=== PATIENT | male | born 1985 | race American Indian/Alaskan Native ===

== ENCOUNTER 2020-02-04 20:22 | Emergency (ER) | payer SELFPAY ==
[2020-02-04 20:57] VITALS: BP 147/89
--- NOTE | 2020-02-04 20:59 | Event Note ---
ED Screening Note Date of service: 02/04/20 Time: 20:58 ED Screening Note: c/o urinary frequency, blurred vision, and increased thirst no prior hx of DM POC glucose = 385 This initial assessment/diagnostic orders/clinical plan/treatment(s) is/are subject to change based on patients health status, clinical progression and re- assessment by fellow clinical providers in the ED. Further treatment and workup at subsequent clinical providers discretion. Patient/guardian urged not to elope from the ED as their condition may be serious if not clinically assessed and managed. Initial orders include: labs UA
[2020-02-04 21:33] LABS: Basophils # (Auto) 0.1 K/mm3 (0.0-0.1); Basophils % (Auto) 0.5 % (0.0-1.8); Eosinophils # (Auto) 0.1 K/mm3 (0.0-0.4); Eosinophils % (Auto) 0.6 % (0.0-4.3); Hematocrit 45.3 % (35.5-45.6); Hemoglobin 15.8 gm/dl (11.8-15.2); Lymphocytes # (Auto) 3.9 K/mm3 (1.2-5.4); Lymphocytes % (Auto) 27.8 % (13.4-35.0); Mean Corpuscular HGB Conc 35 % (32-34); Mean Corpuscular Volume 89 fl (84-94); Monocytes # (Auto) 0.8 K/mm3 (0.0-0.8); Monocytes % (Auto) 5.4 % (0.0-7.3); Platelet Count 260 K/mm3 (140-440); Red Blood Count 5.12 M/mm3 (3.65-5.03); Red Cell Distribution Width 13.8 % (13.2-15.2)
[2020-02-04 21:50] LABS: Alanine Aminotransferase 68 units/L (7-56); Albumin 4.4 g/dL (3.9-5); BUN/Creatinine Ratio 19; Blood Urea Nitrogen 19 mg/dL (9-20); Calcium 9.3 mg/dL (8.4-10.2); Hemolysis Index 155
[2020-02-05] MEDS ORDERED: SODIUM CHLORIDE 0.9% 1000 ML 1,000 ML IV ONE (01:48)
[2020-02-05] MEDS ORDERED: INSULIN REGULAR, HUMAN 100 UNIT/ML 3ML VIAL IV ONE (01:48)
--- NOTE | 2020-02-05 01:52 | Emergency Department Report ---
ED General Adult HPI - General Chief complaint: Hyperglycemia Stated complaint: ELEVATED BLOOD SUGAR Time Seen by Provider: 02/04/20 20:57 Source: patient Mode of arrival: Ambulatory Limitations: No Limitations - History of Present Illness Initial comments: 34-year-old male presents to the emergency department complaining feeling some weakness polyuria polydipsia. Reports no significant past past medical history but was found to have an average blood sugar upon entering into the emergency department he denies any known history of any diabetes. Reports no fevers, chills, sweats reports no chest pain or palpitations. No nausea no vomiting. No abdominal pain,. Reports no hematuria no hematemesis no hematochezia no melena. No rashes. Reports no headache, no blurred vision, no no loss of sensation no presyncope. States that he has not been under the supervision of a primary care doctor as well as with unsure of his current health status - Related Data Previous Rx's Medication Instructions Recorded Last Taken Type Blood-Glucose Meter [Freestyle 1 each MC AC #1 each 02/05/20 Unknown Rx Precision Nikolas Meter] metFORMIN [Glucophage] 500 mg PO QDAY #30 tab 02/05/20 Unknown Rx Allergies Allergy/AdvReac Type Severity Reaction Status Date / Time No Known Allergies Allergy Unverified 02/04/20 20:54 ED Review of Systems ROS: Stated complaint: ELEVATED BLOOD SUGAR Other details as noted in HPI Comment: All other systems reviewed and negative ED Past Medical Hx - Past Medical History Previous Medical History?: No - Surgical History Past Surgical History?: No - Social History Smoking Status: Never Smoker Substance Use Type: None - Medications Home Medications: Home Medications Medication Instructions Recorded Confirmed Last Taken Type Blood-Glucose Meter [Freestyle 1 each MC AC #1 each 02/05/20 Unknown Rx Precision Nikolas Meter] metFORMIN [Glucophage] 500 mg PO QDAY #30 tab 02/05/20 Unknown Rx ED Physical Exam - General Limitations: No Limitations General appearance: alert, in no apparent distress - Head Head exam: Present: atraumatic, normocephalic - Eye Eye exam: Present: normal appearance - ENT ENT exam: Present: mucous membranes moist - Neck Neck exam: Present: normal inspection - Respiratory Respiratory exam: Present: normal lung sounds bilaterally. Absent: respiratory distress - Cardiovascular Cardiovascular Exam: Present: regular rate, normal rhythm. Absent: systolic murmur, diastolic murmur, rubs, gallop - GI/Abdominal GI/Abdominal exam: Present: soft, normal bowel sounds - Rectal Rectal exam: Present: deferred - Extremities Exam Extremities exam: Present: normal inspection - Back Exam Back exam: Present: normal inspection - Neurological Exam Neurological exam: Present: alert, oriented X3 - Psychiatric Psychiatric exam: Present: normal affect, normal mood - Skin Skin exam: Present: warm, dry, intact, normal color. Absent: rash ED Course Vital Signs 02/04/20 20:56 Temperature 98 F Pulse Rate 89 Respiratory 18 Rate Blood Pressure 147/89 [Right] ED Medical Decision Making - Lab Data Result diagrams: 02/04/20 21:06 02/04/20 21:06 - Medical Decision Making This patient is a 34-year-old obese male, presenting with apparent acute hypoglycemia. Differential diagnosis includes new onset diabetes, steroid or other medication use, secondary ingestion, reactive hyper glycemia. Consideration considered DKA versus hyperosmolar nonketotic state, sepsis is possible etiology of patient's current presentation. However given the current history and physical including current glucose level the current presentation is consistent with acute asymptomatic hyperglycemia. Plan to treat supportively no indication for further work-up at this time. Plan supportive care, serial pulmonary care glucose monitoring, labs, serial reassessment Critical care attestation.: If time is entered above; I have spent that time in minutes in the direct care of this critically ill patient, excluding procedure time. ED Disposition Clinical Impression: Diabetes mellitus Disposition: DC-01 TO HOME OR SELFCARE Is pt being admited?: No Does the pt Need Aspirin: No Condition: Stable Instructions: Diabetes Mellitus Type 2 in Adults (ED) Prescriptions: Blood-Glucose Meter [Freestyle Precision Nikolas Meter] 1 each AC #1 each metFORMIN [Glucophage] 500 mg PO QDAY #30 tab Referrals: PRIMARY CARE, [Primary Care Provider] - 3-5 Days [facility] [Provider Group] - 3-5 Days
[2020-02-05 02:04] LABS: Bacteria,Urine 1+ /HPF (Negative); Bilirubin,Urine NEG (Negative); Blood,Urine NEG (Negative); Color,Urine Yellow (Yellow); Mucus,Urine FEW /HPF; Urobilinogen,Urine < 2.0 mg/dL (<2.0)
== END 2020-02-05 05:10 | disposition home or self-care (01) ==
LOC: ED 20:22
DX: E11.65 Type 2 diabetes mellitus with hyperglycemia (principal); Z79.899 Other long term (current) drug therapy
CPT/HCPCS: 36415; 80053; 81001; 82805; 82962; 85025; 96361; 96374; 99284; J7030; J1815

== ENCOUNTER 2020-12-18 09:48 | Emergency (ER) | payer SELFPAY ==
[2020-12-18 10:39] VITALS: BP 142/78
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
== END 2020-12-18 14:55 | disposition home or self-care (01) ==
LOC: ED 09:48
DX: M54.5 Low back pain (principal); Z79.899 Other long term (current) drug therapy
CPT/HCPCS: 72100